=== PATIENT | female | born 1965 | race Caucasian/White ===

== ENCOUNTER 2025-02-11 00:19 | Outpatient (CLI) | payer MEDICAID, SELFPAY ==
--- NOTE | 2025-02-11 13:30 | DI.US_ITS ---
APPROVED REPORT EXAM: Comprehensive 2D, Doppler, and color-flow Echocardiogram Patient Location: Out-Patient Vp Compliance: Alexis Murray RDCS (AE) Indications: Cardiomegaly, cough, COPD w/ exacerbation Other Information Study Quality: Fair. Technically limited study due to body habitus, lung disease. Conclusion Normal left ventricular wall thickness and chamber size. Ejection fraction is 60%. Wall motion is normal Normal right ventricular size and function Both atria are normal in size There is no structural or hemodynamically significant valvular disease Wall motion Left Ventricle The left ventricle is normal size. The left ventricular systolic function is normal. The left ventricular ejection fraction is within the normal range. There is normal left ventricular wall thickness. There is normal LV segmental wall motion. There is no ventricular septal defect visualized. LVEF is 60%. Right Ventricle The right ventricle is normal size. The right ventricular systolic function is normal. Atria The left atrium size is normal. The right atrium size is normal. The interatrial septum is intact with no evidence for an atrial septal defect. Aortic Valve The aortic valve is normal in structure. Aortic valve is trileaflet. There is no aortic valvular stenosis. No aortic regurgitation is present. Mitral Valve The mitral valve is normal in structure. No evidence of mitral valve stenosis. There is no mitral valve regurgitation noted. Tricuspid Valve The tricuspid valve is normal in structure. There is no tricuspid valve stenosis. Trace tricuspid regurgitation. Pulmonic Valve The pulmonary valve is normal in structure. There is no pulmonic valvular stenosis. There is no pulmonic valvular regurgitation. Great Vessels The aortic root is normal in size. Ascending aorta is not well visualized. IVC is normal in size and collapses >50% with inspiration. Pericardium There is no pericardial effusion. 2D Dimensions IVSD d PLAX 0.71 cm F: 0.6-1.0 Ao Root d 2.65 cm F: 2.7 - 3.3 LVPW d PLAX 0.67 cm F: 0.6 - 1.0 LVID d PLAX 4.02 cm F: 3.8 - 5.2 LVDs 2.77 cm F: 2.2 - 3.5 LV EF Teichholz 59.6 % FS 31.26 % LV EDV (Teich) 71.0 mL LV ESV (Teich) 28.7 mL Stroke Vol Index (Teich) 26.79 M-Mode TAPSE 1.12 cm (M/F) >1.7 Auto EF LV EDV A4C 66.6 mL LV EDV A2C 50.8 mL LV EDV BP LV ESV A4C 26.9 mL LV ESV A2C 21.8 mL LV ESV BP LVEF(%) A4C 59.6 % LVEF(%) A2C 57.1 % LVEF(%) BP LV SV A4C 39.7 ml LV SV A2C 29.0 ml LV SV BP LV CO A4C 3.6 L/min LV CO A2C 2.6 L/min LV CO BP HR A4C 91.60 BPM HR A2C 89.33 BPM LV EDV Index (BP) LA Volume LA Length A4C 2.4 cm LA Length A2C 3.6 cm LA Area A4C s 3.80 cm2 LA Area A2C s 7.28 cm2 LA Vol A4C A-L 5.13 mL LA Vol A2C A-L 12.64 mL LA Vol Biplane A-L 9.8 mL LA Vol/BSA A4C A-L LA Vol/BSA A2C A-L LA Vol/BSA BP A-L 6.2 mL/m2 LA Vol A4C MOD 4.9 mL LA Vol A2C MOD 12.7 mL LA Vol BP MOD 9.6 mL RA Volume RA Area A4C 4.5 cm2 RA ESV A4C (A-L) 6.4mL RA Vol/BSA A4C A-L RA Length A4C 2.6 cm RA ESV A4C (MOD) 6.6mL LV Diastology MV E' medial 0.100 (>0.07 m/s) MV E Vmax 0.46 (0.4-1.3 m/s) MV E/E' MED 4.55 (<14) MV A Vmax 0.65 (0.4-1.3 m/s) MV E' lateral 0.092 (>0.1 m/s) E/A Ratio 0.7 MV E/E' LAT 4.95 (<14) MV E' Average 0.096 m/s MV E/E'(average) 4.74 Aortic Valve AoV Vmax 0.88 m/s LVOT Vmax 0.77 m/s AoV Peak Grad 3.1 mmHg LVOT Peak Grad 2.4 mmHg AoV Area (Vmax) 2.68 cm2 LVOT VTI 0.140 m AoV VTI 0.196 m LVOT Mean Grad 1.3 mmHg AoV Mean Hiro. 0.70 m/s LVOT SV 42.55 mL AoV Mean Grad 2.1 mmHg LVOT Diam s 1.95 cm AoV Area (VTI) 2.17 cm2 AV Regurg Peak Gr. 3.08 mmHg Velocity Ratio 0.88 Pulmonary Valve PV Vmax 0.67 (0.5-1.5 m/s) RVOT Vmax 0.49 m/s PV Peak Grad 1.8 mmHg RVOT Peak Gr. 0.9 mmHg PV Mean Hiro 0.45 m/s RVOT VTI 0.089 m PV Mean Grad 1.0 mmHg RVOT Mean Gr. 0.4 mmHg
== END 2025-02-11 00:39 ==
LOC: DI 00:19
PROVIDERS: PCP Physician Assistant Medical; Visit Provider Internal Medicine Cardiovascular Disease
DX: I51.7 Cardiomegaly (principal); R05.9 Cough, unspecified; J44.1 Chronic obstructive pulmonary disease with (acute) exacerbation; R94.31 Abnormal electrocardiogram [ECG] [EKG]
CPT/HCPCS: 93306

== ENCOUNTER 2025-02-18 07:59 | Outpatient (CLI) | payer MEDICAID, SELFPAY | END 2025-02-18 08:00 | disposition home or self-care (01) | LOC: DI.CARD 08:00 | PROVIDERS: PCP Physician Assistant Medical; Visit Provider Registered Nurse | DX: R94.31 Abnormal electrocardiogram [ECG] [EKG] (principal) | CPT/HCPCS: 93010 ==

== ENCOUNTER 2025-02-25 08:42 | Outpatient (CLI) | payer MEDICAID, SELFPAY ==
--- NOTE | 2025-02-25 08:30 | RT.EKG_ITS ---
APPROVED REPORT Exam: Resting ECG Reason for Exam: hx of abnormal EKG Patient Location: O HR:101 bpm ECG Measurements Heart Rate 101 AXIS LA 137 P 80 QRSd 82 QRS 100 QT 326 T 15 QTc 423 Conclusion Sinus tachycardia...rate> 99 Right axis deviation...QRS axis ( 00,531)
== END 2025-02-25 08:43 | disposition home or self-care (01) ==
LOC: DI.CARD 08:43
PROVIDERS: PCP Physician Assistant Medical; Visit Provider Registered Nurse
DX: I51.7 Cardiomegaly (principal); R94.31 Abnormal electrocardiogram [ECG] [EKG]; R00.0 Tachycardia, unspecified
CPT/HCPCS: 93010